=== PATIENT | female | born 1980 | race Caucasian/White ===

== ENCOUNTER → 2023-05-13 10:54 | Outpatient (BNVA) | payer BC, SELFPAY | PROVIDERS: PCP Nurse Practitioner Family; Visit Provider Nurse Practitioner Family | DX: Z00.00 Encounter for general adult medical examination without abnormal findings (principal); E55.9 Vitamin D deficiency, unspecified; Z13.29 Encounter for screening for other suspected endocrine disorder; J45.909 Unspecified asthma, uncomplicated; T63.441A Toxic effect of venom of bees, accidental (unintentional), initial encounter | CPT/HCPCS: 80061; 82306; 82947; 84443 ==

== ENCOUNTER → 2024-06-07 13:20 | Outpatient (BNVA) | payer BC, SELFPAY | PROVIDERS: PCP Nurse Practitioner; Visit Provider Nurse Practitioner | DX: Z13.6 Encounter for screening for cardiovascular disorders; E04.9 Nontoxic goiter, unspecified; E55.9 Vitamin D deficiency, unspecified | CPT/HCPCS: 80053; 80061; 82306; 84439; 84443; 84481; 86800 ==

== ENCOUNTER 2024-07-01 15:34 | Outpatient (CLI) | payer BC, SELFPAY ==
--- NOTE | 2024-07-01 15:30 | US_ITS ---
WS: [id number] THYROID ULTRASOUND HISTORY: E04.9 - Nontoxic goiter, unspecified COMPARISON: None available. Right lobe: 1.6 cm x 1.1 cm x 4.8 cm (w x ap x l). Volume: 3.8 cm3. Normal sized gland is very mildly heterogeneous. Benign colloid cyst appears to be in the central gla nd. Cyst measures 0.6 x 0.5 x 0.8 cm. Exact location is not documented. Left lobe: 1.7 cm x 1.1 cm x 4.5 cm (w x ap x l). Volume: 4.2 cm3. Mildly heterogeneous gland with no mass. No nodules. Isthmus: 0.2 cm. US/US thyroid [id number] IMPRESSION: 1. Normal sized gland. 2. Benign subcentimeter colloid cyst RIGHT thyroid. No suspicious nodules for which biopsy should be obtained.
== END 2024-07-01 15:35 | disposition home or self-care (01) ==
LOC: RAD 15:36
PROVIDERS: PCP Nurse Practitioner; Visit Provider Nurse Practitioner
DX: E04.9 Nontoxic goiter, unspecified (principal)
CPT/HCPCS: 76536; 80053; 80061; 82306; 84439; 84443; 84481; 86800

== ENCOUNTER → 2025-06-28 16:07 | Outpatient (BNVA) | payer BC, SELFPAY | PROVIDERS: PCP Nurse Practitioner; Visit Provider Nurse Practitioner | DX: E55.9 Vitamin D deficiency, unspecified (principal); E04.9 Nontoxic goiter, unspecified | CPT/HCPCS: 80053; 80061; 82306; 84439; 84443; 84481; 85025 ==